=== PATIENT | male | born 1960 | race Caucasian/White ===

== ENCOUNTER → 2018-03-16 08:18 | Outpatient (CLI) | payer OTHER, SELFPAY ==
[2018-03-16 11:16] LABS: Blood Urea Nitrogen 18 mg/dL (7-18); Calcium 9.3 mg/dL (8.5-10.1); Carbon Dioxide 28 mmol/L (21.0-32.0); Chloride 102 mmol/L (98-107); Creatinine,Serum 0.74 mg/dL (0.70-1.30); Estimated Glomerular Filt Rate 108 ml/min (>60); GFR (African American) 131 ML/MIN (>60); Glucose 101 mg/dL (74-106); Sodium 140 mmol/L (136-145)
== END ==
PROVIDERS: Visit Provider Physician Assistant
DX: I10 Essential (primary) hypertension (principal); R06.09 Other forms of dyspnea; R60.9 Edema, unspecified
CPT/HCPCS: 36415; 80048

== ENCOUNTER → 2018-03-23 10:59 | Outpatient (CLI) | payer OTHER, SELFPAY ==
--- NOTE | 2018-03-23 11:03 | CT_ITS ---
CT chest wo con HISTORY: Shortness of air, swelling ITS.REASON: . ORDERING PHYSICIAN: Geovanny Long MD PATIENT AGE: 58 years COMPARISON: None Technique: Axial images obtained with sagittal and coronal reformats. All CT scans at the facility use one or more dose reduction, viz: automated exposure control, ma/kV adjustment per patient size (including targeted exams where dose is matched to indication, i.e. head), or iterative reconstruction technique. FINDINGS: There are scattered small mediastinal lymph nodes not significantly changed. Normal heart size. No coronary artery calcification evident. Minimal thickening of the pericardium anteriorly. The ascending aorta is upper normal at 4 cm.. No mediastinal or hilar mass or adenopathy. Minimal atelectatic changes are present in lung bases. No lobar consolidation or collapse. No central obstructing lesion. Mild degenerative changes thoracic spine. IMPRESSION: 1. No acute finding. 2. Mild atelectatic or fibrotic changes in the lung bases. No central obstructing lesion or suspicious nodule. 3. Ascending aorta upper limits of normal at 4 cm
== END ==
PROVIDERS: PCP Emergency Medicine; Visit Provider Internal Medicine Cardiovascular Disease
DX: R06.09 Other forms of dyspnea (principal); I10 Essential (primary) hypertension; I51.9 Heart disease, unspecified; K21.9 Gastro-esophageal reflux disease without esophagitis; M19.90 Unspecified osteoarthritis, unspecified site; R60.9 Edema, unspecified
CPT/HCPCS: 71250; 93225

== ENCOUNTER → 2018-03-27 16:06 | Outpatient (CLI) | payer OTHER, SELFPAY | PROVIDERS: PCP Emergency Medicine; Visit Provider Internal Medicine Cardiovascular Disease | DX: G47.33 Obstructive sleep apnea (adult) (pediatric) (principal); R06.09 Other forms of dyspnea; R06.83 Snoring; R53.83 Other fatigue; E66.9 Obesity, unspecified; I10 Essential (primary) hypertension; K21.9 Gastro-esophageal reflux disease without esophagitis; I51.9 Heart disease, unspecified | CPT/HCPCS: 95806 ==

== ENCOUNTER → 2018-06-25 15:55 | Outpatient (CLI) | payer OTHER, SELFPAY | PROVIDERS: Visit Provider Specialist | DX: G47.33 Obstructive sleep apnea (adult) (pediatric) (principal) | CPT/HCPCS: 94762 ==

== ENCOUNTER → 2018-08-09 14:05 | Outpatient (CLI) | payer OTHER, SELFPAY ==
--- NOTE | 2018-08-09 14:07 | MR_ITS ---
MR lumbar spine wo con, MR 3-d myelogram/MRCP Ordering Physician: Miguel Mathis MD Patient Age: 58 years: Male HISTORY: ITS.REASON: back pain with leg pain Bilateral leg pain. 5 months. No trauma. HISTORY of lumbar surgery 2003. Cramping left foot. TECHNIQUE: Sagittal STIR, T1, T2, axial T1 and T2. On 1.5T Siemens wide bore MRI. 3-D MR myelogram image set obtained & performed on MRI workstation. Additional sagittal thin section T2 weighted dataset obtained from this latter acquisition as well (---76 CPT) COMPARISON :CT lumbar spine 03/19/2011. FINDINGS Vertebral bodies appear intact with no compression fracture or lesion. Prominent disc space narrowing L5/S1 most notable posteriorly with mild reactive endplate changes about the narrowed degenerated disc. Diffuse disc bulge along with some mild posterior hypertrophic ridging. Bilateral facet hypertrophy. Features combine to yield a moderate/generous narrowing/encroachment upon the lateral recesses and neural foramen bilaterally. L4/5. Mild diffuse disc bulge slightly more evident towards the right. Prominent facet hypertrophy, arthropathy. Ligamentum flavum hypertrophy on the left. Features combine to yield moderate recess & foraminal encroachment on right more than left.. Note previous procedure/ surgery posterior to L4/5-suspect there may be a small microlaminectomy right. L3/4: Disc intact. Neural foramen patent. Minor facet arthropathy. L2/3 disc, intact.. L1/2 disc intact . T12/L1 disc intact T11/12. Moderate Spur,/focal hard disc to the right of midline which does indent thecal sac to the right, as well as mildly effaces cord to the right of midline.. Spurring here was was evident on previous CT studies 3-D MRI myelogram image set demonstrates axial fairly generous spinal canal. There is anterior indentation upon the thecal sac at the T 11/12 level due to the hard disc, spur to the right. Only scant indentation upon the left aspect of thecal sac due to the facet and ligament flavum hypertrophy on left at L4/5. IMPRESSION 1. L5/S1 Degenerative disc space narrowing most pronounced posteriorly at L5/S1. Mild disc bulge & posterior ridging along with facet hypertrophy yields moderate/generous foraminal & recess encroachment bilaterally. 2.... L4/5. Mild diffuse disc bulge along with prominent facet hypertrophy.-Features combine to yield moderate recess & foraminal encroachment, right more so than left 3. T11/12. Again note a focal spur & hard disc to the right of midline-which indents thecal sac and mildly effaces thoracic cord to the right
== END ==
PROVIDERS: PCP Emergency Medicine; Visit Provider Emergency Medicine
DX: M54.10 Radiculopathy, site unspecified (principal)
CPT/HCPCS: 72148; 76376

== ENCOUNTER → 2018-09-14 14:58 | Outpatient (POV) | payer OTHER, SELFPAY ==
[2018-09-14 15:00] VITALS: BP 155/116; PULSE 89; RESP 20; O2SAT 95; BMI 33.2
--- NOTE | 2018-09-14 15:20 | HMH.PMCON ---
Assessment and Plan (1) Facet hypertrophy of lumbosacral region Current visit: No Status: Chronic Category: Medical Code(s): M47.817 - Spondylosis without myelopathy or radiculopathy, lumbosacral region (2) Bulging lumbar disc Current visit: No Status: Chronic Category: Medical Code(s): M51.26 - Other intervertebral disc displacement, lumbar region (3) Lumbar disc disease with radiculopathy Current visit: No Status: Acute Category: Medical Code(s): M51.16 - Intervertebral disc disorders with radiculopathy, lumbar region - Assessment and plan all Dx Assessment and Plan for all problems:: We will seek approval for a lumbar epidural steroid injection under fluoroscopy at L4-L5. He is to continue with gabapentin and tramadol. HPI - Data of Consult Patient: new to practice Consult date: 09/14/18 Requesting Physician: Ten Miller MD Primary Care Provider: Miguel Mathis MD - Consult Narrative Reason for consult: Low back pain and leg pain History of present illness: Mr. Lawson is a 58 year old male who has increasing low back pain with radiation into both legs especially to his knees. He previously had a lumbar discectomy at L4-L5. His MRI does show mild diffuse disc bulge at L4-L5 with ligamentum flavum hypertrophy and previous discectomy at that level. He also has had a microlaminectomy at that level. He was doing well up until recently when he started to have some increasing back pain radiating to his legs and both knees. He rates his pain a 6-7 out of 10. He describes his pain as aching, constant. He has not had any injections. He is currently on gabapentin and tramadol which does help some. CC: Ten Miller MD [facility] History I have reviewed the patient's past medical history: Yes Medical History: Reports:: Hypertension, Osteoporosis Denies:: Cancer, Diabetes Mellitus Type 1, Diabetes Mellitus Type 2, MRSA *Have you ever received a pneumonia vaccine?: No *Have you received a flu vaccine this season?: Yes Other Medical History: Reports: Osteoporosis Other Surgeries: Yes: Cholecystectomy, Other (back surgery x 2) Amputation: No Fractures: No - *Social History Smoking Status: Never smoker Tobacco Type: cigarettes Alcohol Intake: never Alcohol Intake Frequency:: a few times a week Substance Use Type: denies use *Occupational Status:: employed Housing: house *Travel in the last 8 weeks: None - Psychiatric History Expresses thoughts of harming self/others: None Suicide Plan Description: No Plan Family Hx:: Cancer Review of Systems - Review of Systems Review of systems:: pertinent systems reviewed and negative unless documented below - *Musculoskeletal Reports abnormal walking, Reports joint pain, Reports back pain, Reports radiating pain into limb, Reports stiffness Meds Home Medications Medication Instructions Recorded Confirmed Type Multivitamin/Iron/Folic Acid 1 each PO DAILY 03/07/18 08/03/18 History [Multivitamin with Iron Tablet] pantoprazole DR 40 mg granules 40 mg PO DAILY #90 each 03/09/18 08/03/18 Rx delayed-release for susp in packet losartan 50 mg-hydrochlorothiazide 1 tab PO DAILY #90 tab 09/14/18 Rx 12.5 mg tablet Allergies Allergy/AdvReac Type Severity Reaction Status Date / Time From ALEVE Allergy Mild Uncoded 08/03/18 14:53 From TYLENOL Allergy Unknown Uncoded 08/03/18 14:53 Objective Vital signs: Pulse Resp BP Pulse Ox 89 20 155/116 H 95 09/14/18 15:00 09/14/18 15:00 09/14/18 15:00 09/14/18 15:00 - Routine Back/Spine/Pelvis Exam Back/Spine: Present: vertebral tenderness, abnormal straight leg raise Opioid Risk Tool - CAGE-AID Questionaire Do you feel a need to increase medication use?: No Are you annoyed by criticism?: No Do you feel guilty for using substances?: No Do you use substances to calm or relieve a hangover?: No - Opioid Risk Tool-Male Family hx alcohol abuse: N Family hx illegal drugs: N
--- NOTE | 2018-09-14 15:24 | P.CONS_ITS ---
Assessment and Plan (1) Facet hypertrophy of lumbosacral region Current visit: No Status: Chronic Category: Medical Code(s): M47.817 - Spondylosis without myelopathy or radiculopathy, lumbosacral region (2) Bulging lumbar disc Current visit: No Status: Chronic Category: Medical Code(s): M51.26 - Other intervertebral disc displacement, lumbar region (3) Lumbar disc disease with radiculopathy Current visit: No Status: Acute Category: Medical Code(s): M51.16 - Intervertebral disc disorders with radiculopathy, lumbar region - Assessment and plan all Dx Assessment and Plan for all problems:: We will seek approval for a lumbar epidural steroid injection under fluoroscopy at L4-L5. He is to continue with gabapentin and tramadol. HPI - Data of Consult Patient: new to practice Consult date: 09/14/18 Requesting Physician: Ten Miller MD Primary Care Provider: Miguel Mathis MD - Consult Narrative Reason for consult: Low back pain and leg pain History of present illness: Mr. Lawson is a 58 year old male who has increasing low back pain with radiation into both legs especially to his knees. He previously had a lumbar discectomy at L4-L5. His MRI does show mild diffuse disc bulge at L4-L5 with ligamentum flavum hypertrophy and previous discectomy at that level. He also has had a microlaminectomy at that level. He was doing well up until recently when he started to have some increasing back pain radiating to his legs and both knees. He rates his pain a 6-7 out of 10. He describes his pain as aching, constant. He has not had any injections. He is currently on gabapentin and tramadol which does help some. CC: Ten Miller MD [facility] History I have reviewed the patient's past medical history: Yes Medical History: Reports:: Hypertension, Osteoporosis Denies:: Cancer, Diabetes Mellitus Type 1, Diabetes Mellitus Type 2, MRSA *Have you ever received a pneumonia vaccine?: No *Have you received a flu vaccine this season?: Yes Other Medical History: Reports: Osteoporosis Other Surgeries: Yes: Cholecystectomy, Other (back surgery x 2) Amputation: No Fractures: No - *Social History Smoking Status: Never smoker Tobacco Type: cigarettes Alcohol Intake: never Alcohol Intake Frequency:: a few times a week Substance Use Type: denies use *Occupational Status:: employed Housing: house *Travel in the last 8 weeks: None - Psychiatric History Expresses thoughts of harming self/others: None Suicide Plan Description: No Plan Family Hx:: Cancer Review of Systems - Review of Systems Review of systems:: pertinent systems reviewed and negative unless documented below - *Musculoskeletal Reports abnormal walking, Reports joint pain, Reports back pain, Reports radiating pain into limb, Reports stiffness Meds Home Medications Medication Instructions Recorded Confirmed Type Multivitamin/Iron/Folic Acid 1 each PO DAILY 03/07/18 08/03/18 History [Multivitamin with Iron Tablet] pantoprazole DR 40 mg granules 40 mg PO DAILY #90 each 03/09/18 08/03/18 Rx delayed-release for susp in packet losartan 50 mg-hydrochlorothiazide 1 tab PO DAILY #90 tab 09/14/18 Rx 12.5 mg tablet Allergies Allergy/AdvReac Type Severity Reaction Status Date / Time From ALEVE Allergy Mild Uncoded 08/03/18 14:53 From TYLENOL Allergy Unknown Uncoded 08/03/18 14:53 Obje
== END ==
PROVIDERS: PCP Emergency Medicine; Visit Provider Anesthesiology
DX: M47.817 Spondylosis without myelopathy or radiculopathy, lumbosacral region (principal); M51.16 Intervertebral disc disorders with radiculopathy, lumbar region; M51.26 Other intervertebral disc displacement, lumbar region; M81.0 Age-related osteoporosis without current pathological fracture
CPT/HCPCS: 99202

== ENCOUNTER 2018-10-26 13:47 | Day surgery (SDC) | payer OTHER, SELFPAY ==
[2018-10-26 13:56] VITALS: BP 134/80; PULSE 93; RESP 18; O2SAT 96; BMI 33.5
[2018-10-26 14:19] VITALS: BP 146/90; PULSE 99; RESP 18; O2SAT 95
--- NOTE | 2018-10-26 14:28 | HMH.PMPROC ---
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 He had a previous discectomy at L4-L5. He also had a microlaminectomy at that level. We will do a lumbar epidural steroid injection at L5-S1 today to see if this helps with his pain symptoms. Procedure Details:: Lumbar epidural steroid injection under fluoroscopy Informed consent was obtained and the risk and benefits of the procedure was explained to the patient. The patient was taken to the procedure room. The patient was placed prone on the procedure table. The patient was prepped and draped in sterile fashion. C-arm fluoroscopy was used to view the lumbar spine. Skin and subcutaneous tissues were anesthetized using lidocaine. I placed an 18-gauge epidural needle and advanced into the L5-S1 interspace using fluoroscopic guidance and [id number] to air. After confirmation of needle placement in the epidural space with dye I injected 2 mL of lidocaine 1.5% with Depo-Medrol 80 mg. Patient tolerated the procedure well with no complications. Plan and Disposition:: We will follow-up with him in 2 weeks. Will reevaluate symptoms at that time.
[2018-10-26 14:40] VITALS: BP 117/72; PULSE 86; RESP 18; O2SAT 95
== END 2018-10-26 14:40 | disposition home health service (06) ==
LOC: SC.PAINP 13:47
PROVIDERS: PCP Emergency Medicine; Visit Provider Anesthesiology
DX: M51.16 Intervertebral disc disorders with radiculopathy, lumbar region (principal); Z98.890 Other specified postprocedural states
CPT/HCPCS: 62323; J1040; Q9966

== ENCOUNTER → 2019-01-17 09:15 | Outpatient (CLI) | payer OTHER, SELFPAY ==
--- NOTE | 2019-01-17 09:16 | NM_ITS ---
PROCEDURE: NM BONE SCAN WHOLE BODY CLINICAL INDICATION: swelling in LLE Lower extremity swelling COMPARISON: CHESTWO CT chest wo con from 03/23/2018 SPLUMBWO MR lumbar spine wo con from 08/09/2018 TECHNIQUE: Dose: 26.5 mCi technetium MDP IV FINDINGS: Anterior and posterior images are obtained of the bony skeleton. Increased activity is present within both knees and feet. There is slight increased activity involving the right 6th rib anteriorly and right 10th rib posteriorly. Review of old chest CT shows an old fractures at these regions . There is slight increased activity within the lower thoracic spine consistent with mild degenerative changes. Otherwise negative. IMPRESSION: Essentially negative whole body bone scan aside from degenerative activity within the lower extremities and thoracic spine as well as an old right rib fractures Dictated by: Renny Loya MD 01/18/2019 10:25 Electronically signed by Renny Loya MD in [place] 01/18/2019 10:25
--- NOTE | 2019-01-17 10:54 | HMH.ITSHM ---
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 [] pantoprazole bisoprolol losartan
== END ==
PROVIDERS: PCP Emergency Medicine; Visit Provider Internal Medicine
DX: R60.0 Localized edema (principal); R06.09 Other forms of dyspnea; E66.9 Obesity, unspecified; I10 Essential (primary) hypertension; I51.89 Other ill-defined heart diseases; G47.33 Obstructive sleep apnea (adult) (pediatric); Z99.89 Dependence on other enabling machines and devices
CPT/HCPCS: 78306; A9503

== ENCOUNTER → 2019-01-25 08:28 | Outpatient (CLI) | payer OTHER, SELFPAY ==
--- NOTE | 2019-01-25 08:30 | MR_ITS ---
PROCEDURE: MR ABDOMEN WO/W CON CLINICAL INDICATION: to rule out retroperitoneal fibrosis Lower extremity swelling, retroperitoneal fibrosis, the COMPARISON: CHESTWO CT chest wo con from 03/23/2018 TECHNIQUE: Routine multiplanar multi echo sequences are performed without and with gadolinium enhancement. FINDINGS: The liver, spleen, adrenal glands, and kidneys have an unremarkable appearance. No evidence of aortic aneurysm. No retroperitoneal mass evident. No evidence of retroperitoneal fibrosis. The inferior vena cava has an unremarkable appearance. No acute bony anomalies. There is a incidental note made of a 12 mm cyst in the lower pole of the right kidney IMPRESSION: Negative MRI of the abdomen without and with gadolinium enhancement No evidence of retroperitoneal fibrosis. Dictated by: Renny Loya MD 01/28/2019 06:22 Electronically signed by Renny Loya MD in [place] 01/28/2019 06:22
--- NOTE | 2019-01-25 08:30 | MR_ITS ---
PROCEDURE: MR PELVIS WO/W CON CLINICAL INDICATION: to rule out retroperitoneal fibrosis Lower extremity swelling with pain COMPARISON: No exams were available for comparison TECHNIQUE: Routine multiplanar multi echo sequences are performed without and with gadolinium enhancement. FINDINGS: No mass, adenopathy, or abnormal enhancement. No adenopathy. No abnormal fluid collections. No acute bony findings. Mild prominence of the prostate at 4.9 x 3.9 cm. No bony anomalies apparent. IMPRESSION: Unremarkable MRI of the pelvis without and with contrast. Dictated by: Renny Loya MD 01/28/2019 06:02 Electronically signed by Renny Loya MD in [place] 01/28/2019 06:02
[2019-01-25 08:57] LABS: Blood Urea Nitrogen 21 mg/dL (7-18); Estimated Glomerular Filt Rate 86 ml/min (>60); GFR (African American) 105 ML/MIN (>60)
== END ==
PROVIDERS: PCP Emergency Medicine; Visit Provider Internal Medicine
DX: I51.89 Other ill-defined heart diseases (principal); I10 Essential (primary) hypertension; E66.9 Obesity, unspecified; R60.9 Edema, unspecified; R06.09 Other forms of dyspnea; G47.33 Obstructive sleep apnea (adult) (pediatric); Z99.89 Dependence on other enabling machines and devices
CPT/HCPCS: 36415; 72197; 74183; 82565; 84520; A9576

== ENCOUNTER → 2019-02-19 10:18 | Outpatient (CLI) | payer OTHER, SELFPAY ==
--- NOTE | 2019-02-19 10:20 | CA_ITS ---
APPROVED REPORT EXAM: Comprehensive 2D, Doppler, and color-flow Echocardiogram Marble Cleaner: Renetta Cooper RVT Ht: 6 ft 0 in Wt: 261lbs BSA: 2.39 BP: 123/87 mmHg Indications: DD, Edema, Hypertension, Shortness of Breath, Obesity, Hypertension/HDD 2D Dimensions IVSd 1.10 cm M: 0.6-1.2 LVEF (Visual) 68.00 % PWd 1.20 cm M: 0.6 - 1.2 LVDd 4.50 cm M: 4.2 - 5.9 LVDs 2.80 cm M: 2.5 - 4.0 LVOT 2.50 cm (M/F) 1.5-2.5 M-Mode Dimensions LA Diam 4.10 cm (1.9-4.0) LVDd 6.70 cm (3.5-5.7) Ao Diam 2.80 cm (2.0-3.7) LVDs 5.30 cm (3.5-5.7) AV Cusp 2.30 cm (1.5-2.6) IVSd 1.10 cm (0.6-1.1) PWd 0.70 cm (0.6-1.1) EF (Teich) 41.60% FS 20.90% EDV (Teich) 231.00 mL ESV (Teich) 135.00 mL LV Diastology E/A Ratio 0.7 MED E' 5.56 (< 7 cm/sec) E'/MED E' Ratio 7.60 (>14) LAT E' 7.02 (<10 cm/sec) E/LAT E' Ratio 6.00 (>14) Aortic Valve AoV Peak Javier. 98.20 (50-130 cm/s) AI PHT 942.00 ms AO Peak GR. 4.00 mmHg Mitral Valve MV E Max Javier. 42.00 (40-130 cm/s) MV A Velocity 62.40 (40-130 cm/s) E/A Ratio 0.70 Pulmonary Valve PA Accel Time 120.00 (>120 msec) Left Ventricle Left atrium is mildly enlarged, left ventricle is normal size, mild concentric left ventricular hypertrophy, visually estimated ejection fraction 55% with no regional wall motion abnormality, endocardial surfaces are poorly visualized. Grade 1 diastolic dysfunction seen without tissue Doppler evidence of raise left atrial pressure. Right Ventricle Right atrium and right ventricle mildly enlarged with normal contractility. Aortic Valve Aortic valve is minimally thickened and calcified, there is no aortic stenosis, there is mild aortic insufficiency. Mitral Valve Mitral valve leaflets are minimally thickened, there is mild mitral regurgitation. Tricuspid Valve Tricuspid valve is grossly normal, there is mild tricuspid regurgitation, tricuspid regurgitation jet velocity is inadequate for cannulation of the right ventricular systolic pressure. Pulmonic Valve Pulmonic valve is poorly visualized. Great Vessels Aortic root is normal size. Pericardium No significant pericardial effusion noted. Conclusion 1. Mildly enlarged left atrium, normal left ventricular size, mild concentric left ventricular hypertrophy, visually estimated ejection fraction 55% with no regional wall motion abnormality, grade 1 diastolic dysfunction seen without tissue Doppler evidence of raise left atrial pressure. 2. Mildly enlarged right ventricle with normal contractility. 3. Thickened and calcified aortic valve without aortic stenosis, there is mild aortic insufficiency. 4. Mild mitral and tricuspid regurgitation. 5. No significant pericardial effusion noted. Electronically signed by : Geovanny Long, 02/20/2019 06:29:25
== END ==
PROVIDERS: PCP Emergency Medicine; Visit Provider Internal Medicine
DX: I50.30 Unspecified diastolic (congestive) heart failure (principal); R06.09 Other forms of dyspnea; E66.9 Obesity, unspecified; G47.33 Obstructive sleep apnea (adult) (pediatric); I10 Essential (primary) hypertension; Z99.89 Dependence on other enabling machines and devices
CPT/HCPCS: 93306

== ENCOUNTER → 2019-03-20 11:06 | Outpatient (CLI) | payer OTHER, SELFPAY ==
[2019-03-21 08:13] LABS: Vitamin D 25 Hydroxy 42.5 ng/mL (30.0-100.0)
[2019-03-21 13:21] LABS: Antinuclear Antibodies, IFA Negative (.)
[2019-03-22 21:12] LABS: C1 Esterase Inhibitor 29 mg/dL (21-39)
[2019-03-26 10:13] LABS: Beef (Bos spp) IgE <0.10 kU/L (<0.35); Lamb/Mutton (Ovis spp) IgE <0.10 kU/L (<0.35)
[2019-03-26 14:58] LABS: C1 Est.Inhib.Funct. >92 (.)
== END ==
PROVIDERS: Visit Provider Allergy & Immunology
DX: T78.3XXA Angioneurotic edema, initial encounter (principal); L29.9 Pruritus, unspecified
CPT/HCPCS: 36415; 82652; 83520; 86003; 86008; 86038; 86161; 86352

== ENCOUNTER → 2019-04-09 13:26 | Outpatient (POV) | payer OTHER, SELFPAY | PROVIDERS: Visit Provider Dermatology | DX: Z00.00 Encounter for general adult medical examination without abnormal findings (principal) ==

== ENCOUNTER → 2019-06-05 13:56 | Outpatient (POV) | payer OTHER, SELFPAY | DX: Z00.00 Encounter for general adult medical examination without abnormal findings (principal) ==

== ENCOUNTER → 2022-09-26 14:50 | Outpatient (CLI) | payer OTHER, SELFPAY ==
[2022-09-26 18:25] LABS: Alanine Aminotransferase 20 U/L (12-78); Albumin Level 4.1 g/dl (3.5-5.0); Albumin/Globulin Ratio 1.6 (1.1-1.8); Alkaline Phosphatase 95 U/L (38-126); Anion Gap 22.4 mEq/L (5-15); Aspartate Amino Transferase 31 U/L (17-59); Bilirubin,Total 0.7 mg/dl (0.2-1.3); Blood Urea Nitrogen 30 mg/dl (9-20); Calcium 8.8 mg/dl (8.4-10.2); Carbon Dioxide 22 mmol/L (22.0-30.0); Chloride 100 mmol/L (98-107); Chol/HDL Ratio 4.4 (1-3.5); Cholesterol 173 mg/dl (140-200); Estimated Glomerular Filt Rate 98 ml/min (>60); Free T4 (Free Thyroxine) 1.52 ng/dl (0.78-2.19); GFR (African American) 118 ML/MIN (>60); Globulin 2.6 g/dL (1.3-3.2); Glucose 91 mg/dl (74-100); HDL Cholesterol 39 mg/dl (40-60); Potassium 4.4 mmoL/L (3.5-5.1); Sodium 140 mmol/L (136-145); Total Protein,Serum 6.7 g/dl (6.3-8.2); Triglycerides 189 mg/dl (30-150); Uric Acid 4.6 mg/dl (3.5-8.5); VLDL Cholesterol 38 mg/dL (0-40)
[2022-09-26 18:27] LABS: 25-OH Vitamin D, Total 49.3 ng/mL (30-100)
[2022-09-26 18:36] LABS: Direct LDL Cholesterol 115.35 mg/dL (100-129)
[2022-09-26 18:42] LABS: Basophils % 0.4 % (0.1-2.0); Eosinophils # 0.2 K/mm3 (0.0-0.4); Hemoglobin 14.8 g/dL (14.1-18.0); Lymphocytes # 1.8 K/mm3 (0.7-4.5); Lymphocytes % 19.7 % (10-50); Mean Corpuscular HGB Conc 32.8 g/dL (31.8-35.4); Mean Corpuscular Hemoglobin 29.5 pg (27.0-31.2); Mean Corpuscular Volume 89.8 fl (80-94); Mean Platelet Volume 8.6 fl (7.4-10.4); Monocytes # 0.5 K/mm3 (0.1-1.0); Monocytes % 4.9 % (1.7-9.3); Neutrophils # 6.8 K/mm3 (1.8-7.8); Neutrophils % 72.9 % (37.0-80.0); Platelet Count 395 K/mm3 (142-424); Red Blood Count 5.01 M/mm3 (4.60-6.20); Red Cell Distribution Width 13.4 % (11.5-17.5); White Blood Count 9.3 K/mm3 (4.8-10.8)
[2022-09-26 18:56] LABS: Thyroid Stimulating Hormone 1.05 uIU/mL (0.465-4.68)
[2022-09-26 19:30] LABS: C-Reactive Protein 42.7 mg/L (0-4)
[2022-09-26 19:34] LABS: Erythrocyte Sedimentation Rate 22 mm/hr (0-20)
== END ==
LOC: LAB.DROPOF 09-27 06:41
PROVIDERS: PCP Emergency Medicine; Visit Provider Emergency Medicine
DX: E66.9 Obesity, unspecified (principal); M25.572 Pain in left ankle and joints of left foot; E55.9 Vitamin D deficiency, unspecified; Z68.32 Body mass index [BMI] 32.0-32.9, adult; R94.6 Abnormal results of thyroid function studies; Z79.899 Other long term (current) drug therapy
CPT/HCPCS: 80053; 80061; 82306; 84439; 84443; 84550; 85025; 85651; 86140

== ENCOUNTER 2023-10-25 08:39 | Outpatient (CLI) | payer OTHER, SELFPAY ==
[2023-10-25 09:06] LABS: Basophils % 0.5 % (0.1-2.0); Eosinophils # 0.2 K/mm3 (0.0-0.4); Eosinophils % 2.4 % (0.1-12.0); Hematocrit 45.9 % (42.0-52.0); Hemoglobin 14.5 g/dL (14.1-18.0); Lymphocytes # 1.4 K/mm3 (0.7-4.5); Lymphocytes % 18.7 % (10-50); Mean Corpuscular HGB Conc 31.7 g/dL (31.8-35.4); Mean Corpuscular Hemoglobin 29.2 pg (27.0-31.2); Mean Corpuscular Volume 92.2 fl (80-94); Monocytes # 0.4 K/mm3 (0.1-1.0); Monocytes % 5.1 % (1.7-9.3); Neutrophils # 5.6 K/mm3 (1.8-7.8); Neutrophils % 73.3 % (37.0-80.0); Platelet Count 373 K/mm3 (142-424); Red Blood Count 4.97 M/mm3 (4.60-6.20); Red Cell Distribution Width 13.8 % (11.5-17.5); White Blood Count 7.6 K/mm3 (4.8-10.8)
[2023-10-25 09:27] LABS: Chloride 106 mmol/L (98-107); Sodium 138 mmol/L (136-145)
[2023-10-25 09:28] LABS: Potassium 4.8 mmoL/L (3.5-5.1)
[2023-10-25 09:30] LABS: Alanine Aminotransferase 19 U/L (12-78); Albumin Level 3.9 g/dl (3.5-5.0); Albumin/Globulin Ratio 1.4 (1.1-1.8); Alkaline Phosphatase 92 U/L (38-126); Anion Gap 11.8 mEq/L (5-15); Aspartate Amino Transferase 26 U/L (17-59); Bilirubin,Total 0.9 mg/dl (0.2-1.3); Blood Urea Nitrogen 20 mg/dl (9-20); Carbon Dioxide 25 mmol/L (22.0-30.0); Estimated Glomerular Filt Rate 97 ml/min (>60); GFR (African American) 118 ML/MIN (>60); Globulin 2.7 g/dL (1.3-3.2); Total Protein,Serum 6.6 g/dl (6.3-8.2)
[2023-10-25 09:31] LABS: Calcium 9.2 mg/dl (8.4-10.2); Glucose 110 mg/dl (74-100)
[2023-10-25 11:15] LABS: Erythrocyte Sedimentation Rate 45 mm/hr (0-20)
[2023-10-26 11:56] LABS: HBsAg Screen Negative (Negative); HCV Ab Non Reactive (Non Reactive); Hep A Ab, IGM Negative (Negative); Hep B Core Ab, IgM Negative (Negative)
[2023-10-26 14:27] LABS: RA Latex Turbid. <10.0 IU/mL (<14.0)
== END 2023-10-25 23:59 | disposition home or self-care (01) ==
LOC: LAB 08:40
PROVIDERS: PCP Family Medicine; Visit Provider Internal Medicine
DX: R76.8 Other specified abnormal immunological findings in serum; M25.50 Pain in unspecified joint; Z79.1 Long term (current) use of non-steroidal anti-inflammatories (NSAID); M11.20 Other chondrocalcinosis, unspecified site; W57.XXXA Bitten or stung by nonvenomous insect and other nonvenomous arthropods, initial encounter; M25.40 Effusion, unspecified joint
CPT/HCPCS: 36415; 80053; 80074; 85025; 85651; 86431

== ENCOUNTER 2023-10-31 14:24 | Outpatient (CLI) | payer OTHER, SELFPAY ==
[2023-10-31 15:11] LABS: Basophils % 0.5 % (0.1-2.0); Eosinophils # 0.2 K/mm3 (0.0-0.4); Eosinophils % 2.4 % (0.1-12.0); Hematocrit 43.7 % (42.0-52.0); Hemoglobin 14.2 g/dL (14.1-18.0); Lymphocytes # 1.5 K/mm3 (0.7-4.5); Mean Corpuscular HGB Conc 32.6 g/dL (31.8-35.4); Mean Corpuscular Hemoglobin 29.6 pg (27.0-31.2); Mean Platelet Volume 8.2 fl (7.4-10.4); Monocytes # 0.3 K/mm3 (0.1-1.0); Monocytes % 4.8 % (1.7-9.3); Neutrophils # 5.1 K/mm3 (1.8-7.8); Neutrophils % 71.3 % (37.0-80.0); Platelet Count 355 K/mm3 (142-424); White Blood Count 7.1 K/mm3 (4.8-10.8)
[2023-11-02 13:02] LABS: Lyme Ab CIA Negative (Negative)
[2023-11-02 17:30] LABS: % CD8-/CD57+ Lymphs 12.9 % (2.0-17.0); Abs.CD8-CD57+ Lymphs 194 /uL (60-360); Baso (Absolute) 0.1 x10E3/uL (0.0-0.2); Basos 1 % (Not Estab.); Eos 2 % (Not Estab.); Eos (Absolute) 0.1 x10E3/uL (0.0-0.4); Hematocrit 43.5 % (37.5-51.0); Immature Granulocytes 0 % (Not Estab.); Lymphs 21 % (Not Estab.); Lymphs (Absolute) 1.5 x10E3/uL (0.7-3.1); MCH 28.8 pg (26.6-33.0); MCHC 32.2 g/dL (31.5-35.7); MCV 90 fL (79-97); Monocytes 7 % (Not Estab.); Neutrophils 69 % (Not Estab.); Neutrophils (Absolute) 5.1 x10E3/uL (1.4-7.0); Platelets 329 x10E3/uL (150-450); RBC 4.86 x10E6/uL (4.14-5.80); RDW 12.8 % (11.6-15.4); WBC 7.3 x10E3/uL (3.4-10.8)
[2023-11-18 11:26] LABS: HGE IgG Titer NEGATIVE; HGE IgM Titer NEGATIVE
[2023-11-18 11:28] LABS: Miscellaneous Test SCANNED IMAGE
== END 2023-10-31 23:59 | disposition home or self-care (01) ==
LOC: LAB 14:26
PROVIDERS: PCP Nurse Practitioner Family; Visit Provider Nurse Practitioner Family
DX: M25.50 Pain in unspecified joint; W57.XXXA Bitten or stung by nonvenomous insect and other nonvenomous arthropods, initial encounter
CPT/HCPCS: 36415; 85025; 86357; 86618; 86666

== ENCOUNTER 2024-02-07 15:30 | Outpatient (CLI) | payer MEDICARE, SELFPAY ==
[2024-02-07 16:32] LABS: Microscopic, Urine URINE MICROSCOPIC (MICROSCOPIC)
[2024-02-07 17:33] LABS: Appearance,Urine CLEAR (Clear); Bilirubin,Urine Negative (Negative); Blood, Urine Negative (Negative); Color,Urine YELLOW (Yellow); Glucose,Urine (UA) Negative (Negative); Ketones,Urine Negative (Negative); Leukocyte Esterase,Urine Negative (Negative); Nitrate,Urine Negative (Negative); PH,Urine 6.5 (5.0-8.5); Protein,Urine Negative (Negative)
[2024-02-07 18:16] LABS: RBC,Urine Occasional #/hpf (0-3); Squamous Epithelial Cell,Urine Occasional #/hpf (0-5)
== END 2024-02-07 23:59 | disposition home or self-care (01) ==
LOC: LAB.DROPOF 02-08 13:49
PROVIDERS: PCP Nurse Practitioner Family; Visit Provider Nurse Practitioner Family
DX: R30.0 Dysuria (principal); N41.9 Inflammatory disease of prostate, unspecified
CPT/HCPCS: 81001; 87086

== ENCOUNTER 2024-02-21 09:00 | Outpatient (CLI) | payer MEDICARE, SELFPAY ==
[2024-02-21 14:11] LABS: Alanine Aminotransferase 22 U/L (12-78); Albumin Level 4.3 g/dl (3.5-5.0); Albumin/Globulin Ratio 1.7 (1.1-1.8); Alkaline Phosphatase 60 U/L (38-126); Aspartate Amino Transferase 37 U/L (17-59); Bilirubin,Total 1.1 mg/dl (0.2-1.3); Blood Urea Nitrogen 21 mg/dl (9-20); Calcium 9.2 mg/dl (8.4-10.2); Carbon Dioxide 23 mmol/L (22.0-30.0); Chloride 110 mmol/L (98-107); Chol/HDL Ratio 3.9 (1-3.5); Cholesterol 179 mg/dl (140-200); Estimated Glomerular Filt Rate 113 ml/min (>60); GFR (African American) 137 ML/MIN (>60); Globulin 2.6 g/dL (1.3-3.2); Glucose 93 mg/dl (74-100); HDL Cholesterol 46 mg/dl (40-60); Sodium 136 mmol/L (136-145); Total Protein,Serum 6.9 g/dl (6.3-8.2); Triglycerides 73 mg/dl (30-150); VLDL Cholesterol 15 mg/dL (0-40)
[2024-02-21 14:22] LABS: C-Reactive Protein 7.1 mg/L (0-4); Direct LDL Cholesterol 115.11 mg/dL (100-129)
[2024-02-21 14:52] LABS: Hemoglobin A1C 5.5 % (4.0-6.0)
== END 2024-02-21 23:59 | disposition home or self-care (01) ==
LOC: LAB.DROPOF 02-22 10:15
PROVIDERS: PCP Nurse Practitioner Family; Visit Provider Nurse Practitioner Family
DX: Z12.5 Encounter for screening for malignant neoplasm of prostate (principal); M25.50 Pain in unspecified joint; E78.5 Hyperlipidemia, unspecified; I10 Essential (primary) hypertension; Z13.1 Encounter for screening for diabetes mellitus
CPT/HCPCS: 80053; 80061; 83036; 86140; G0103

== ENCOUNTER 2024-09-09 09:30 | Outpatient (CLI) | payer MEDICARE, SELFPAY ==
--- NOTE | 2024-09-09 09:33 | XR_ITS ---
FINAL REPORT CLINICAL HISTORY: cervicalgia c/o pain right side radiates to shoulder FINDINGS: AP, lateral and odontoid views of the cervical spine were obtained. There is no prior exam for comparison. There is no acute fracture or malalignment. There is mild degenerative disc disease most pronounced at C3-4 and C4-5. Vertebral body height is preserved. The precervical soft tissues are normal. IMPRESSION: No acute osseous abnormality of the cervical spine. Reviewed, Interpreted and Dictated by Bethany Norman MD Transcribed by Valentine Iglesias Authenticated and [facility]
== END 2024-09-09 23:59 | disposition home or self-care (01) ==
LOC: RAD 09:31
PROVIDERS: PCP Nurse Practitioner Family; Visit Provider Nurse Practitioner Family
DX: M43.6 Torticollis (principal); M54.2 Cervicalgia
CPT/HCPCS: 72040

== ENCOUNTER 2024-10-15 10:30 | Outpatient (CLI) | payer MEDICARE, SELFPAY ==
[2024-10-15 14:16] LABS: Basophils # 0.1 K/mm3 (0-0.2); Basophils % 0.7 % (0.1-2.0); Eosinophils # 0.2 Kmm3 (0.0-0.4); Hematocrit 46.9 % (42.0-52.0); Hemoglobin 15.5 g/dL (14.1-18.0); Immature Granulocytes # 0.02 10^3uL; Immature Granulocytes % 0.3 %; Lymphocytes # 1.5 K/mm3 (0.7-4.5); Mean Corpuscular Hemoglobin 29.9 pg (27.0-31.2); Mean Corpuscular Volume 90.4 fl (80-94); Mean Platelet Volume 10.4 fl (7.4-10.4); Monocytes # 0.7 K/mm3 (0.1-1.0); Monocytes % 9.5 % (1.7-9.3); Neutrophils # 4.5 K/mm3 (1.8-7.8); Neutrophils % 64.5 % (37.0-80.0); Nucleated Red Blood Cells # 0 10^3/uL; Nucleated Red Blood Cells % 0 %; Platelet Count 324 K/mm3 (142-424); Red Blood Count 5.19 M/mm3 (4.60-6.20); Red Cell Distribution Width 12.8 % (11.5-17.5); Red Cell Distribution Width-SD 42.2 fL
[2024-10-15 14:40] LABS: Alanine Aminotransferase 23 U/L (12-78); Albumin Level 4.3 g/dl (3.5-5.0); Albumin/Globulin Ratio 1.7 (1.1-1.8); Alkaline Phosphatase 84 U/L (38-126); Anion Gap 10.8 mEq/L (5-15); Aspartate Amino Transferase 26 U/L (17-59); Bilirubin,Total 0.9 mg/dl (0.2-1.3); Blood Urea Nitrogen 27 mg/dl (9-20); Calcium 9.5 mg/dl (8.4-10.2); Carbon Dioxide 24 mmol/L (22.0-30.0); Chloride 106 mmol/L (98-107); Chol/HDL Ratio 5.8 (1-3.5); Cholesterol 193 mg/dl (140-200); Estimated Glomerular Filt Rate 85 ml/min (>60); GFR (African American) 102 ML/MIN (>60); Globulin 2.6 g/dL (1.3-3.2); Glucose 67 mg/dl (74-100); HDL Cholesterol 33 mg/dl (40-60); Magnesium 2.2 mg/dl (1.6-2.3); Potassium 4.8 mmoL/L (3.5-5.1); Sodium 136 mmol/L (136-145); Total Protein,Serum 6.9 g/dl (6.3-8.2); Triglycerides 172 mg/dl (30-150); Uric Acid 4.5 mg/dl (3.5-8.5); VLDL Cholesterol 34 mg/dL (0-40)
[2024-10-15 14:51] LABS: Direct LDL Cholesterol 124.09 mg/dL (100-129)
[2024-10-15 15:10] LABS: Thyroid Stimulating Hormone 1.92 uIU/mL (0.465-4.68)
[2024-10-15 15:14] LABS: Erythrocyte Sedimentation Rate 9 mm/hr (0-20)
[2024-10-15 15:30] LABS: Vitamin B12 757 pg/mL (239-931)
--- OUTSIDE RECORDS SUMMARY | 2024-10-16 11:21 | XMS_ITS | Clinical Summary ---
Author Organization Healthcare Address [address] [place] [address] Care Team Providers Care Art Gilder Name Role Phone Miguel Mathis MD Primary Care Provider [phone] Family History Medical History Relation Name Comments Cardiac disorder Other 1 Prostate cancer Other 2 Skin cancer Other 3 Relation Name Status Comments Other 1 Other 2 Other 3 Social History Tobacco Use Types Packs/Day Years Used Date Smoking Tobacco: Former Comments:Former light tobacc o smoker Alcohol Use Standard Drinks/Week Comments Yes 0 (1 standard drink = 0.6 oz pure alcohol) Alcoholic Drinks/day: Minimum alcohol consumption Sex and Gender Information Value Date Recorded Sex Assigned at Not on file Legal Sex Male 7:13 PM EDT Gender Identity Not on file Sexual Orientation Not on file Last Filed Vital Signs Vital Sign Reading Time Taken Comments Blood Pressure - - Pulse - - Temperature - - Respiratory Rate - - Oxygen Saturation - - Inhaled Oxygen Concentration - - Weight 114 kg (250 lb 6 oz) 02/11/2016 10:31 AM EDT Height 182.9 cm (6') 02/11/2016 10:31 AM EDT Body Mass Index 33.96 02/11/2016 10:31 AM EDT Plan of Treatment Not on file Care Teams Art Gilder Relationship Specialty Start Date End Date Miguel Mathis MD [address] [facility] [place] [address] PCP - General 09/18/20
--- OUTSIDE RECORDS SUMMARY | 2024-10-16 11:21 | XMS_ITS | Referral Summary ---
Author Organization [facility] [facility] [employer] Address [address] [place] [address] Care Team Providers Care Line Construction Supervisor Name Role Phone Unavailable Primary Care Provider Unavailabl e Social History Tobacco Use Types Packs/Day Years Used Date Smoking Tobacco: Never Assessed Sex and Gender Information Value Date Recorded Sex Assigned at Not on file Legal Sex Male 7:14 PM CDT Gender Identity Not on file Sexual Orientation Not on file Plan of Treatment Not on file
--- OUTSIDE RECORDS SUMMARY | 2024-10-16 11:21 | XMS_ITS | Clinical Summary ---
Author Organization [facility] Address [address] [place] [address] Phone Care Team Providers Care Drafting Layout Man Name Role Phone Miguel Mathis MD Primary Care Provider [phone] Ollie Coronado DPM Unavailable [phone] Social History Tobacco Use Types Packs/Day Years Used Date Smoking Tobacco: Never Assessed Sex and Gender Information Value Date Recorded Sex Assigned at Not on file Legal Sex Male 1:06 PM EDT Gender Identity Not on file Sexual Orientation Not on file Plan of Treatment Health Maintenance Due Date Last Done Comments Annual Wellness Exam 1962 Hepatitis C Screening 1977 DTaP/TDaP/Td (1 - Tdap) 1978 Cologuard 02/07/2004 Colon Cancer Screening 02/07/2004 Colonoscopy 02/07/2004 FIT 02/07/2004 Sigmoidoscopy 02/07/2004 Virtual Colonography 02/07/2004 Pneumococcal Vaccine 50+ (1 of 1 - PCV) 2009 Zoster (1 of 2) 2009 COVID-19 Vaccine (2023-2 5 season) 2024 Influenza Vaccine (Season Ended) 2025 Hepatitis B Vaccine Aged Out No longe r eligible based on patient's age to complete this topic Meningococcal B Vaccine Aged Out No l onger eligible based on patient's age to complete this topic Goals Goal Patient Goal Type Associated Problems Recent Progress Patient-Stated? Author Maintain a healthy diet, exercise regularly and maintain an ideal body weight [place] [address] [employer] Care Teams Drafting Layout Man Relationship Specialty Start Date End Date Miguel Mathis MD [address] [place] [id number] PCP - General Emergency Medicine 01/28/15 Ollie Coronado DPM [address] [facility] [address] [place] [address] Senior Category Manager-Surgery, Foot & Ankle 01/28/15
--- OUTSIDE RECORDS SUMMARY | 2024-10-16 11:21 | XMS_ITS | Clinical Summary ---
Author Organization [facility] [employer] Address [address] [place] [address] Care Team Providers Care Director Of Optimization Name Role Phone Unavailable Primary Care Provider [...]
[2024-10-16 13:14] LABS: RA Latex Turbid. <10.0 IU/mL (<14.0)
[2024-10-17 11:19] LABS: Antinuclear Antibodies, IFA Negative (.)
== END 2024-10-15 23:59 | disposition home or self-care (01) ==
LOC: LAB.DROPOF 10-16 11:19
PROVIDERS: PCP Nurse Practitioner Family; Visit Provider Nurse Practitioner Family
DX: M25.50 Pain in unspecified joint (principal); I10 Essential (primary) hypertension
CPT/HCPCS: 80053; 80061; 82607; 83735; 84443; 84550; 85025; 85651; 86038; 86431

== ENCOUNTER 2024-10-23 11:01 | Outpatient (CLI) | payer MEDICARE, SELFPAY ==
--- NOTE | 2024-10-23 11:00 | CA_ITS ---
FINAL REPORT CLINICAL HISTORY: EX-SMOKER FINDINGS: The peak systolic velocity of the right common carotid artery is 62 cm/s. The peak systolic velocity of the right internal carotid artery is 111 cm/s and end diastolic velocity 36 cm/s. The ICA/CCA ratio is 2.0. A small amount of plaque is present. The right external carotid artery is patent. The right vertebral artery is patent with antegrade flow. The peak systolic velocity of the left common carotid artery is 82 cm/s. The peak systolic velocity of the left internal carotid artery is 65 cm/s and end diastolic velocity 32 cm/s. The ICA/CCA ratio is 1.1. A small amount of plaque is present. The left external carotid artery is patent.The left vertebral artery is patent with antegrade flow. IMPRESSION: Less than 50% bilateral carotid stenoses. Bilateral patent vertebral arteries with antegrade flow. Reviewed, Interpreted and Dictated by Bello Cannon MD Transcribed by Giulia Nunez Authenticated and [facility]
--- OUTSIDE RECORDS SUMMARY | 2024-10-23 11:10 | XMS_ITS | Clinical Summary ---
Author Organization Healthcare Address [address] [place] [address] Care Team Providers Care Tower Hand Name Role Phone Miguel Mathis MD Primary Care Provider Family History Medical History Relation Name Comments [...] of Treatment Not on file Care Teams Tower Hand Relationship Specialty Start Date End Date Miguel Mathis MD [address] [facility] [place] [address] PCP - General 09/18/20
--- OUTSIDE RECORDS SUMMARY | 2024-10-23 11:10 | XMS_ITS | Clinical Summary ---
Author Organization [facility] Address [address] [place] [address] Phone Care Team Providers Care Paste Mixing Supervisor Name Role Phone Miguel Mathis MD Primary Care Provider [phone] Ollie Coronado DPM Unavailable [phone] Social History Tobacco Use Types Packs/Day [...] [place] [address] [employer] Care Teams Paste Mixing Supervisor Relationship Specialty Start Date End Date Miguel Mathis MD [address] [place] [phone] PCP - General Emergency Medicine 01/28/15 Ollie Coronado DPM [address] [facility] [address] [place] [address] Ambulatory Nurse-Surgery, Foot & Ankle 01/28/15
== END 2024-10-23 23:59 | disposition home or self-care (01) ==
LOC: RT 11:02
PROVIDERS: PCP Nurse Practitioner Family; Visit Provider Nurse Practitioner Family
DX: Z00.00 Encounter for general adult medical examination without abnormal findings (principal); I65.23 Occlusion and stenosis of bilateral carotid arteries; Z87.891 Personal history of nicotine dependence
CPT/HCPCS: 93880

== ENCOUNTER 2024-11-04 08:00 | Outpatient (RCR) | payer MEDICARE, SELFPAY ==
--- NOTE | 2024-10-07 15:49 | HMH.PTOPEV ---
PT Outpatient Evaluation Rehab PT Outpatient Evaluation Start: 10/07/24 13:51 Freq: Status: Active Protocol: Document 10/07/24 13:51 VERONIKA (Rec: 10/07/24 14:41 VERONIKA [id number]) E-signed By Cece Zuniga, PT Outpatient Therapy Subjective History Subjective History This is an initial PT evaluation for 64 y/o male, Srinivasan Lawson, who presents to PT with referral for cervicalgia and decreased ROM of neck. Pt reports ~5 weeks ago, he was having severe spasms in his R shoulder. Pt reports his spasms have gotten better but he is having some stiffness. Pt reports a long history of neck pain (teenage years). Pt reports he has been having relieving pops/crack. Pt's symptoms are on both sides but mostly right sided. Denies radiculopathy symptoms. Pt denies any known SYDNEE (no MVA, no falls). PMH: back surgery in 2003, none other pmh reported. Imagin09/09/24 X-ray. No acute osseous abnormality of the cervical spine. MRI was ordered but pt sent to trial PT first. New diagnosis of No cancer in past 12 months? Chief Complaint Pain,Stiff Symptom Description Intermittent Level of pain today 2 (0-10) Pain scale - at its 0 best (0-10) Pain scale - at its 10 worst (0-10) Cervical Eval Palpation Cervical Muscles R Cervical Paraspinal,L Cervical Paraspinal,R Suboccipital,L Suboccipital,R SCM,L SCM,R Upper Trapezius,L Upper Trapezius,R Thoracic Paraspinals,L Thoracic Paraspinals Cervical/Thoracic Tenderness,Muscle Guarding Palpation Findings Posture Head/C-Spine Posture Neutral Position Sitting Position Head/C-Spine Posture Neutral Position Standing Position Flexibility Deficits Upper Trapezius (L) Mild Tightness,(R) Moderate Tightness Muscle Length Levaetor Scapulae (L) Mild Tightness,(R) Moderate Tightness Muscle Length Pectoralis Major (R) Mild Tightness,(L) Mild Tightness Muscle Length Passive Joint Mobility Cervical PIVM Dec: R C3/4 L C3/4 R C4/5 L C4/5 R C5/6 L C5/6 R C6/7 L C6/7 AROM Cervical Spine 20, painful Extension Active Range of Motion ( degrees) Cervical Spine WNL, pain free Flexion Active Range of Motion (degrees) Cervical Spine Right 30 Lateral Flexion Active Range of Motion (degrees) Cervical Spine Left 20 Lateral Flexion Active Range of Motion (degrees) Cervical Spine Right 40 Rotation Active Range of Motion ( degrees) Cervical Spine Left 45 Rotation Active Range of Motion ( degrees) MMT Bilateral Deltoid (C5) 5 Normal Biceps Brachii 5 Normal Strength Grade Triceps Brachii 5 Normal Strength Grade Special Test C-Spine Foraminal Negative Left,Negative Right Compression ( [place]urling) Test C-Spine Foraminal Negative Distraction Test C-Spine Compression Negative Left,Negative Right Test Neck Disability Index Neck Disability Index Section 1: Pain The pain is very mild at moment Intensity Section 2: Personal I can look after myself normally but it causes extra Care (washing, pain dressing, etc.) Section 3: Lifting I can lift heavy weights but it gives extra pain Section 4: Reading I can't read as much as I want because of moderate pain in my neck Section 5: Headaches I have no headaches at all Section 6: I can concentrate fully when I want to with slight Concentration difficulty Section 7: Work I can do most of my usual work, but no more Section 8: Driving I can drive my car as long as I want with slight pain in my neck Section 9: Sleeping My sleep is midly disturbed (1-2 hrs sleepless) Section 10: I am able to engage in all my recreation activities Recreation with some pain in NDI Score 13 Outpatient Therapy Assessment Impairments Problems/ Palpation Tenderness,Impaired Range of Motion,Impaired Impairmments Driving,Impaired Bending,Subjective C/O Pain Prognosis Rehab Potential Good Comment Pt presents with neck pain with mobility deficits. Pt denied any radicular symptoms, dizziness, or nausea throughout cervical evaluation. Pt would benefit from skilled OP PT to address mobility deficits and improve daily functioning. Clinical Impression Consistent with Yes Diagnosis Short Term Goals Number of Weeks 4 Decreased Palpation Yes: Decrease cervical paraspinal mm. tenderness to 1/4 Tenderness TTP. Increase Range of Yes: Improve neck AROM by 5 degrees in each direction Motion to improve function. Improve Neck Yes: Improve score to 14 points. Disability Index Score Decrease Subjective Yes: Report a 48 hour pain average of 4/10 (best, worst C/O Pain , current) Patient to be Ind w/ Yes: Verbalize compliance with HEP HEP Skilled Nursing Goals Decreased Palpation Yes: Decrease cervical paraspinal mm. tenderness to 0/4 Tenderness TTP. Increase Range of Yes: Improve neck AROM to WNL in all planes to maximize Motion daily functioning. Improve Neck Yes: Improve score to 10 points. Disability Index Score Decrease Subjective Yes: Report a 48 hour pain average of 2/10 (best, worst C/O Pain , current) Improve Self Care/ Yes: Report at least 85% improved since IE. Self Management Patient to be Ind w/ Yes: Verbalize adherence to HEP Advanced HEP Outpatient Therapy Plan of Care Treatment Plan May Include Therapeutic Exercise Yes Including Home Exercise Program Manual Therapy Yes Techniques Neuromuscular Re- Yes education Therapeutic Yes Activities to Return to Previous Functional/Work Level Gait Training Yes ADL/Self Care Yes Education Mechanical Traction Yes Dry Needling Yes Thermal Modalities Yes Electrical Yes Stimulation Ultrasound/ Yes Phonophoresis Iontophoresis Yes Orthotics/Bracing/ Yes Splinting Massage Yes Eval/Re-Eval Yes Frequency Times per week 2-3 times Duration Number of Weeks 6-8 weeks Addendums This patient is a No candidate for social or vocational rehab ? Patient/Guardian Yes verbally acknowledges understanding of treatment program and consents to further treatment? Patient/Guardian Yes verbally acknowledges understanding of diagnosis, prognosis and goals for treatment? Eval Complexity PT Charges 06933 - Moderate Complexity Shoulder/Elbow Eval Shoulder Objective Measurements Elbow Objective Measurements PHYSICIAN CERTIFICATION: I certify the specified therapy services for Srinivasan Lawson are required, authorized, and reviewed every 30 days.
== END 2024-11-04 23:59 | disposition home or self-care (01) ==
LOC: PT 08:00
PROVIDERS: Visit Provider Nurse Practitioner Family
DX: M54.2 Cervicalgia (principal); M43.6 Torticollis; M53.82 Other specified dorsopathies, cervical region
CPT/HCPCS: 97110; 97140; 97162

== ENCOUNTER 2024-11-06 09:55 | Outpatient (RCR) | payer MEDICARE, SELFPAY ==
--- NOTE | 2024-11-06 11:03 | HMH.RHREAS ---
Rehab Reassessment Rehab OP Re-assessment Start: 11/06/24 10:02 Freq: Status: Active Protocol: Document 11/06/24 10:54 VERONIKA (Rec: 11/06/24 11:02 VERONIKA [id number]) E-signed By Cece Zuniga, PT Neck Disability Index Neck Disability Index Section 1: Pain I have no pain at the moment Intensity Section 2: Personal I can look after myself normally without causing extra Care (washing, pain dressing, etc.) Section 3: Lifting I can lift heavy weights but it gives extra pain Section 4: Reading I can read as much as I want to with slight pain in my neck Section 5: Headaches I have no headaches at all Section 6: I can concentrate fully when I want to with no Concentration difficulty Section 7: Work I can do as much work as I want to Section 8: Driving I can drive my car without any neck pain Section 9: Sleeping I have no trouble sleeping Section 10: I am able to engage in all my recreation activities Recreation with no neck pain NDI Score 2 Rehab Re-assessment Subjective Subjective Pt reports he feels 85% better since IE. Pt reports good compliance with HEP. Pt reports 48-hour pain average of 0/10. Objective Objective Notes Cervical ROM: EXT: 30 FLEX: WFL LSB: 40 RSB:40 Rotation: 45 B Assessment Progress Assessment Progressing as Expected Assessment Notes This is a reassessment for Srinivasan Lawson who presents to PT for c/o neck pain and stiffness. Pt with good attendance to scheduled PT visits and reports adherence to HEP. Since IE, pt with improvements in neck ROM and pain complaints. Pt reports he is ready for d/c. D/c pt d/t met goals. Patient goals met STGs: MET LTGs: MET except B SBing and rotation ROM. Plan Plan D/c d/t met goals Time and Billing Re-Eval Time 10 Re-Eval Billing 0 Units Charge for PT No reassessment? PHYSICIAN CERTIFICATION: I certify the specified therapy services for Srinivasan Lawson are required, authorized, and reviewed every 30 days.
== END 2024-11-06 23:59 | disposition home or self-care (01) ==
LOC: PT 09:55
PROVIDERS: Visit Provider Nurse Practitioner Family
DX: M53.82 Other specified dorsopathies, cervical region (principal); M43.6 Torticollis
CPT/HCPCS: 97110

== ENCOUNTER 2025-03-14 08:29 | Outpatient (CLI) | payer MEDICARE, SELFPAY ==
--- OUTSIDE RECORDS SUMMARY | 2025-02-11 08:45 | XMS_ITS | Encounter Summary ---
Author Organization [facility] Address [address] [place] [address] Care Team Providers Care Detective Chief Name Role Phone Patricia Peralta APRN Primary Care Provider [phone] Reason for Visit * Reason Comments Pseudogout Encounter Details Date Type Department Care Team (Late st Contact Info) Description 02/11/2025 9:45 AM EDT Office Visit [facility] [address] [id number] Manuel Medina MD [address] [id number] Pseudogout (Primary Dx); High risk medication use; Arthralgia of multiple sites Social History Tobacco Use Types Packs/Day Years Used Date Smoking Tobacco: Former Cigarettes S tarted: 1994 Passive Smoke Exposure: Past Smokeless Tobacco: Never Tobacco Cessation:Counseling Given: Not Answered Comments:Patient has used tobacco. Patient has not used tobacco in the last 30 days. Patient has not used smokeless tobacco in the last 30 days. Alcohol Use Standard Drinks/Week Comments Yes 0 (1 standard drink = 0.6 oz pur e alcohol) occasional Sex and Gender Information Value Date Recorded Sex Assigned at Male 12/09/2024 1:40 PM EDT Legal Sex Male 11:17 AM EDT Gender Identity Not on file Sexual Orientation Not on file documented as of this encounter Last Filed Vital Signs Vital Sign Reading Time Taken Comments Blood Pressure 146/78 02/11/2025 9:33 AM EDT Pulse 81 02/11/2025 9:33 AM EDT Temperature 36.7 C (98 F) 02/11/2025 9:33 AM EDT Respiratory Rate - - Oxygen Saturation - - Inhaled Oxygen Concentration - - Weight 111 kg (245 lb 12.8 oz) 02/11/2025 9:33 A M EDT Height 182.9 cm (6') 02/11/2025 9:33 AM EDT Body Mass Index 33.34 02/11/2025 9:33 AM EDT documented in this encounter Patient Instructions * Patient Instructions* Manuel Medina MD - 02/11/2025 9:45 AM EDT Osteoarthritis Osteoarthritis is a type of arthritis. It refers to joint pain or joint disease. Osteoarthritis affects tissue that covers the ends of bones in joints (cartilage). Cartilage acts as a cushion betweenthe bones and helps them move smoothly. Osteoarthritis occurs when cartilage in the joints gets worn down. Osteoarthritis is sometimes called wear and tear arthritis. Osteoarthritis is the most common form of arthritis. It often occurs in older people. It is a condition that gets worse over time. The joints most often affected by this condition are in the fingers,toes, hips, knees, and spine, including the neck and lower back. What are the causes? This condition is caused by the wearing down of cartilage that covers the ends of bones. What increases the risk? The following factors may make you more likely to develop this condition: Being age 50 or older. Obesity. Overuse of joints. Past injury of a joint. Past surgery on a joint. Family history of osteoarthritis. What are the signs or symptoms? The main symptoms of this condition are pain, swelling, and stiffness in the joint. Other symptoms may include: An enlarged joint. More pain and further damage caused by small pieces of bone or cartilage that break off and float inside of the joint. Small deposits of bone (osteophytes) that grow on the edges of the joint. A grating or scraping feeling inside the joint when you move it. Popping or creaking sounds when you move. Difficulty walking or exercising. An inability to battery starter items, twist your hand, or control the movements of your hands and fingers. How is this diagnosed? This condition may be diagnosed based on: Your medical history. A physical exam. Your symptoms. X-rays of the affected joints. Blood tests to rule out other types of arthritis. How is this treated? There is no cure for this condition, but treatment can help control pain and improve joint function. Treatment may include a combination of therapies, such as: Pain relief techniques, such as: Applying heat and cold to the joint. Massage. A form of talk therapy called cognitive behavioral therapy (CBT). This therapy helps you set goals and follow up on the changes that you make. Medicines for pain and inflammation. The medicines can be taken by mouth or applied to the skin. They include: NSAIDs, such as ibuprofen. Prescription medicines. Strong anti-inflammatory medicines (corticosteroids). Certain nutritional supplements. A prescribed exercise program. You may work with a physical therapist. Assistive devices, such as a brace, wrap, splint, specialized glove, or cane. A weight control plan. Surgery, such as: An osteotomy. This is done to reposition the bones and relieve pain or to remove loose pieces of bone and cartilage. Joint replacement surgery. You may need this surgery if you have advanced osteoarthritis. Follow these instructions at home: Activity Rest your affected joints as told by your health care provider. Exercise as told by your provider. The provider may recommend specific types of exercise, such as: Strengthening exercises. These are done to strengthen the muscles that support joints affected by arthritis. Aerobic activities. These are exercises, such as brisk walking or water aerobics, that increase your heart rate. Mfwix-wp-wlufmu activities. These help your joints move more easily. Balance and agility exercises. Managing pain, stiffness, and swelling If told, apply heat to the affected area as often as told by your provider. Use the heat source that your provider recommends, such as a moist heat pack or a heating pad. If you have a removable assistive device, remove it as told by your provider. Place a towel between your skin and the heat source. If your provider tells you to keep the assistive device on while you apply heat, place a towel between the assistive device and the heat source. Leave the heat on for 20-30 minutes. If told, put ice on the affected area. If you have a removable assistive device, remove it as told by your provider. Put ice in a plastic bag. Place a towel between your skin and the bag. If your provider tells you to keep the assistive device on during icing, place a towel between the assistive device and the bag. Leave the ice on for 20 minutes, 2-3 times a day. If your skin turns bright red, remove the ice or heat right away to prevent skin damage. The risk of damage is higher if you cannot feel pain, heat, or cold. Move your fingers or toes often to reduce stiffness and swelling. Raise (elevate) the affected area above the level of your heart while you are sitting or lying down. General instructions Take lguo-kga-jmqwydj and prescription medicines only as told by your provider. Maintain a healthy weight. Follow instructions from your provider for weight control. Do not use any products that contain nicotine or tobacco. These products include cigarettes, chewing tobacco, and vaping devices, such as e-cigarettes. If you need help quitting, ask your provider. Use assistive devices as told by your provider. Where to find more information National [place] of Arthritis and Musculoskeletal and Skin Diseases: niams.nih.gov National [place] on Aging: shelley.nih.gov [place] [employer]: rheumatology.org Contact a health care provider if: You have redness, swelling, or a feeling of warmth in a joint that gets worse. You have a fever along with joint or muscle aches. You develop a rash. You have trouble doing your normal activities. You have pain that gets worse and is not relieved by pain medicine. This information is not intended to replace advice given to you by your health care provider. Make sure you discuss any questions you have with your health care provider. Document Revised: 12/22/2022 Document Reviewed: 12/22/2022 [employer] Patient Education ?? 2023 [employer]. Methotrexate Tablets What is this medication? METHOTREXATE (METH oh TREX ate) treats autoimmune conditions, such as arthritis and psoriasis. It works by decreasing inflammation, which can reduce pain and prevent long-term injury to the joints and skin. It may also be used to treat some types of cancer. It works by slowing down the growth of cancer cells. This medicine may be used for other purposes; ask your health care provider or pharmacist if you have questions. COMMON BRAND NAME(S): Rheumatrex, Trexall What should I tell my care team before I take this medication? They need to know if you have any of these conditions: Dehydration Diabetes Fluid in the stomach area or lungs Frequently drink alcohol Having surgery, including dental surgery High cholesterol Immune system problems Inflammatory bowel disease, such as ulcerative colitis Kidney disease Liver disease Low blood cell levels (white cells, red cells, and platelets) Lung disease Recent or ongoing radiation Recent or upcoming vaccine Stomach ulcers, other stomach or intestine problems An unusual or allergic reaction to methotrexate, other medications, foods, dyes, or preservatives or trying to get How should I use this medication? Take this medication by mouth with water. Take it as directed on the prescription label. Do not take extra. Keep taking this medication until your care team tells you to stop. Know why you are taking this medication and how you should take it. To treat conditions such as arthritis and psoriasis, this medication is taken ONCE A WEEK as a single dose or divided into 3 smaller doses taken 12 hours apart (do not take more than 3 doses 12 hours apart each week). This medication is NEVER taken daily to treat conditions other than cancer. Taking this medication more often than directed can cause serious side effects, even . Talk to your care team about why you are taking this medication, how often you will take it, and what your dose is. Ask your care team to put thereason you take this medication on the prescription. If you take this medication ONCE A WEEK, choose a day of the week before you start. Ask your pharmacist to include the day of the week on the label. Avoid Monday , which could be misread as Morning . Handling this medication may be harmful. Talk to your care team about how to handle this medication. Special instructions may apply. Talk to your care team about the use of this medication in children. While it may be prescribed forselected conditions, precautions do apply. Overdosage: If you think you have taken too much of this medicine contact a poison control center or emergency room at once. NOTE: This medicine is only for you. Do not share this medicine with others. What if I miss a dose? If you miss a dose, talk with your care team. Do not take double or extra doses. What may interact with this medication? Do not take this medication with any of the following: Acitretin Live virus vaccines Probenecid This medication may also interact with the following: Alcohol Aspirin and aspirin-like medications Certain antibiotics, such as penicillin, neomycin, sulfamethoxazole; trimethoprim Certain medications for stomach problems, such as lansoprazole, omeprazole, pantoprazole Clozapine Cyclosporine Dapsone Folic acid Foscarnet NSAIDs, medications for pain and inflammation, such as ibuprofen or naproxen Phenytoin Pyrimethamine Steroid medications, such as prednisone or cortisone Tacrolimus Theophylline This list may not describe all possible interactions. Give your health care provider a list of all the medicines, herbs, non-prescription drugs, or dietary supplements you use. Also tell them if you smoke, drink alcohol, or use illegal drugs. Some items may interact with your medicine. What should I watch for while using this medication? Visit your care team for regular checks on your progress. It may be some time before you see the benefit from this medication. You may need blood work done while you are taking this medication. If your care team has also prescribed folic acid, they may instruct you to skip your folic acid dose on the day you take methotrexate. This medication can make you more sensitive to the sun. Keep out of the sun. If you cannot avoid being in the sun, wear protective clothing and sunscreen. Do not use sun lamps, tanning beds, or tanning booths. Check with your care team if you have severe diarrhea, nausea, and vomiting, or if you sweat a lot.The loss of too much body fluid may make it dangerous for you to take this medication. This medication may increase your risk of getting an infection. Call your care team for advice if you get a fever, chills, sore throat, or other symptoms of a cold or flu. Do not treat yourself. Try to avoid being around people who are sick. Talk to your care team about your risk of cancer. You may be more at risk for certain types of cancers if you take this medication. Talk to your care team if you or your partner may be . Serious defects can occur if you take this medication during and for 6 months after the last dose. You will need a negative test before starting this medication. Contraception is recommended while taking this medication and for 6 months after the last dose. Your care team can help you find the option that works for you. If your partner can get , use a condom during sex while taking this medication and for 3 months after the last dose. Do not breastfeed while taking this medication and for 1 week after the last dose. This medication may cause infertility. Talk to your care team if you are concerned about your fertility. What side effects may I notice from receiving this medication? Side effects that you should report to your care team as soon as possible: Allergic reactions--skin rash, itching, hives, swelling of the face, lips, tongue, or throat Dry cough, shortness of breath or trouble breathing Infection--fever, chills, cough, sore throat, wounds that don't heal, pain or trouble when passing urine, general feeling of discomfort or being unwell Kidney injury--decrease in the amount of urine, swelling of the ankles, hands, or feet Liver injury--right upper belly pain, loss of appetite, nausea, light-colored stool, dark yellow orbrown urine, yellowing skin or eyes, unusual weakness or fatigue Low red blood cell level--unusual weakness or fatigue, dizziness, headache, trouble breathing Pain, tingling, or numbness in the hands or feet, muscle weakness, change in vision, confusion or trouble speaking, loss of balance or coordination, trouble walking, seizures Redness, blistering, peeling, or loosening of the skin, including inside the mouth Stomach bleeding--bloody or black, tar-like stools, vomiting blood or brown material that looks like coffee grounds Stomach pain that is severe, does not away, or gets worse Unusual bruising or bleeding Side effects that usually do not require medical attention (report these to your care team if they continue or are bothersome): Diarrhea Dizziness Hair loss Nausea Pain, redness, or swelling with sores inside the mouth or throat Skin reactions on sun-exposed areas Vomiting This list may not describe all possible side effects. Call your doctor for medical advice about side effects. You may report side effects to FDA at 7-178-TQF-3121. Where should I keep my medication? Keep out of the reach of children and pets. Store at room temperature between 20 and 25 degrees C (68 and 77 degrees F). Protect from light. Keep the container tightly closed. Get rid of any unused medication after the expiration date. To get rid of medications that are no longer needed or have : Take the medication to a medication take-back program. Check with your pharmacy or law enforcement to find a location. If you cannot return the medication, ask your pharmacist or care team how to get rid of this medication safely. NOTE: This sheet is a summary. It may not cover all possible information. If you have questions about this medicine, talk to your doctor, pharmacist, or health care provider. ?? 2023 Elsevier/Gold Standard (2023-07-02 00:00:00) * Attachments The following attachments cannot be sent through Care Everywhere. * Calcium Pyrophosphate Deposition Disease ([place]) documented in this encounter Progress Notes * Manuel Medina MD - 02/11/2025 9:45 AM EDT Images from the original note were not included. Office Follow Up Date: 02/11/2025 Patient Name: Srinivasan Lawson Date of : 1960 Referring Physician: No ref. provider found Chief Complaint: Chief Complaint Patient presents with Pseudogout History of Present Illness: Srinivasan Lawson is a 65 y.o. male who is here today for follow up on osteoarthritis, pseudogout and +RF. History: The patient reports that starting in 2006, he had problems with sudden onset severe swelling and pain in his left ankle. There was no injury to the ankle. It just started randomly and suddenly. He reports having testing for lupus and Lyme disease at the time which were negative. The doctor at the time suspected pseudogout. The patient would get flare-ups in his knees and wrists on occasion. He noticed that when taking antibiotic that the symptoms would completely go away, but antibiotics stopped helping after a few years. In 2009 he started seeing a new family doctor and continued have problems with flare-ups in his wrists, knees and left ankle. He was given steroids which did not help. There was reportedly suspicion for Lyme disease, but testing for Lyme disease again was negative. He was sent to a cane stripper and reports that he was never diagnosed with anything specific. He next went to [facility] and again was not given a specific diagnosis. He was prescribed allopurinol by the family doctor at the time and colchicine for flare-ups as needed. The allopurinol did not seem to help him, so he stopped it. He does not think his uric acid was ever high. He does note that the colchicine seems to help the swelling and pain slightly when he gets the flare-ups in his peripheral joints. Since retiring in 2021 he has felt some better and the flare-ups wrists, knees, left ankle are not as frequent. He has noticed more joint stiffness in his back and hips now. He still has left ankle and right wrist swelling and aching often. X-rays of the knees have shown degenerative osteoarthritis changes as well as chondrocalcinosis Interim 12/11/2024: He stopped hydroxychloroquine as it did not seem to help him. His PCP next prescribed him oral diclofenac which did help him significantly in regards to joint pain for 3 months, however he developed diarrhea on it so he stopped it. Now he is taking ibuprofen [id number]. Despite this he continues to have intermittent flareups right wrist, knee. Increased neck and back pain.No swollen joints today. Repeat labs show negative rheumatoid factor, negative BARB, normal sed rateJune 2024 Interim 02/11/2025: He returns early to clinic due to flareups particularly right wrist, bilateral knees and left ankle. Present medications do not seem to be preventing the flareups. He felt diclofenac worked better than nabumetone did. Colchicine helped slightly. No swollen finger joints. No flares in the fingers History of Present Illness Subjective Review of Systems: Review of Systems Constitutional: Negative for chills, fatigue, fever and unexpected weight loss. HENT: Negative for mouth sores, sinus pressure and sore throat. Eyes: Positive for itching. Negative for pain and redness. Respiratory: Negative for cough and shortness of breath. Cardiovascular: Negative for chest pain. Gastrointestinal: Positive for GERD and indigestion. Negative for abdominal pain, blood in stool, diarrhea, nausea and vomiting. Endocrine: Negative for polydipsia and polyuria. Genitourinary: Negative for dysuria, genital sores and hematuria. Musculoskeletal: Positive for arthralgias, joint swelling and neck pain. Negative for back pain, myalgias and neck stiffness. Skin: Negative for rash and bruise. Allergic/Immunologic: Positive for environmental allergies. Neurological: Negative for seizures, weakness, numbness and memory problem. Hematological: Negative for adenopathy. Does not bruise/bleed easily. Psychiatric/Behavioral: Negative for depressed mood. The patient is not nervous/anxious. Past Medical History: Past Medical History: Diagnosis Date Broken ribs GERD (gastroesophageal reflux disease) Hypertension Osteoarthritis Pseudogout Past Surgical History: Past Surgical History: Procedure Laterality Date CHOLECYSTECTOMY Family History: Family History Problem Relation Age of Onset Arthritis Mother Prostate cancer Father Social History: Social History Socioeconomic History Marital status: Single Tobacco Use Smoking status: Former Types: Cigarettes Start date: 1994 Passive exposure: Past Smokeless tobacco: Never Tobacco comments: Patient has used tobacco. Patient has not used tobacco in the last 30 days. Patient has not used smokeless tobacco in the last 30 days. Vaping Use Vaping status: Never Used Substance and Sexual Activity Alcohol use: Yes Comment: occasional Drug use: Never Sexual activity: Defer Medications: Current Outpatient Medications: colchicine 0.6 MG tablet, 1 tab bid on day 1 of flare, then 1 tab daily thereafter prn flare, Disp:30 tablet, Rfl: 5 diclofenac (VOLTAREN) 75 MG EC tablet, Take 1 tablet by mouth 2 (Two) Times a Day As Needed (pain)., Disp: 60 tablet, Rfl: 6 folic acid (FOLVITE) 1 MG tablet, Take 1 tablet by mouth Daily., Disp: 90 tablet, Rfl: 3 methotrexate 2.5 MG tablet, Take 6 tablets by mouth 1 (One) Time Per Week. (take all tabs on the same day once a week), Disp: 30 tablet, Rfl: 2 Allergies: No Known Allergies Objective Vital Signs: Vitals: 02/11/25 0933 BP: 146/78 BP Location: Left arm Patient Position: Sitting Cuff Size: Adult Pulse: 81 Temp: 98 ??F (36.7 ??C) Weight: 111 kg (245 lb 12.8 oz) Height: 182.9 cm (72 ) PainSc: 4 Body mass index is 33.34 kg/m??. Physical Exam: Physical Exam MUSCULOSKELETAL: Right wrist slightly swollen and tender Positive crepitus knees. No warmth or effusion Left ankle swollen and tender Complete joint exam was performed including the MCPs, PIPs, DIPs of the hands, wrists, elbows, shoulders, hips, knees and ankles. No soft tissue swelling or tenderness is present except as above. General: The patient is well-developed and well nourished. Cooperative, alert and oriented. Affect is normal. Hydration appears normal. HEENT: Normocephalic and atraumatic. Lids and conjunctiva are normal. Pupils are equal and sclera are clear. Oropharynx is clear NECK neck is supple without adenopathy, masses or thyromegaly. CARDIOVASCULAR: Regular rate and rhythm. No murmurs, rubs or gallops LUNGS: Effort is normal. Lungs are clear bilateral ABDOMEN: Not examined EXTREMITIES: Peripheral pulses are intact. No clubbing. SKIN: No rashes. No subcutaneous nodules. No digital ulcers. No sclerodactyly. NEUROLOGIC: Gait is normal. Strength testing is normal. 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 *Longstanding history frequent episodic sudden onset inflammatory arthritis involving left ankle, knees, wrist Diagnosed as pseudogout years ago by outside cane stripper Uric acid normal. No prior improvement with allopurinol X-ray feet and hands 06/15/2023: Osteoarthritis changes X-ray knees 06/27/2023: Moderate tricompartmental osteoarthritis bilateral knees. Chondrocalcinosis lateral compartments Labs 06/15/2023: + RF 33/neg ACPA, uric acid 3.6, normal sed rate/CRP/CBC/CMP /ferritin/iron Labs 10/15/2024: Negative rheumatoid factor, negative BARB, normal sed rate, normal CBC Current Rx: diclofenac PO, as needed colchicine, MTX 02/11/25 Prior nabumetone, plaquenil (no help) Previous allopurinol(no help), meloxicam (no help), celecoxib Patient describes episodic inflammatory arthritis involving his left ankle, knees, wrists. Also chronic stiffness and pain neck and back. He reports his uric acid has always been normal. Prior trial of allopurinol was of no help. Colchicine helps somewhat when he gets the flare-ups. I suspect intermittent flareups in his joints are due to pseudogout given chondrocalcinosis findings on x-rays. He also has generalized osteoarthritis contributing to pain and stiffness. I think unlikely this is rheumatoid arthritis as he has no persistent synovitis particular in the hands, and repeat RF is negative Knee x-ray does show osteoarthritis and chondrocalcinosis that can be seen with pseudogout Less likely this is gout. Uric acid is normal He returns early to clinic today as he feels his present medications are not effective at preventing flareups in his joints. Presently flaring right wrist, bilateral knees and left ankle. Recommendations -Stop nabumetone and switch back to oral diclofenac which seems to work better for him -Colchicine as needed for flares which has previously been effective for him Consider prophylactic colchicine if needed in the future Handout provided today on pseudogout and osteoarthritis Discussed risks of colchicine such as diarrhea, bone marrow suppression Risks of NSAIDs discussed including GI upset, GI bleeding, renal and hepatic risks and the risks ofcardiovascular disease and stroke. Warned patient not to take with other NSAIDs including OTC NSAIDs. -Recommend trial of methotrexate 6 tablets once weekly along with daily folic acid. Methotrexate handout provided -Labs ordered as below for monitoring to be done in 1 month and every 3 months thereafter. Return to clinic 4 months - High risk medication - Immunosuppression due to medication Methotrexate Risk include but are not limited to severe liver damage so can be fatal, the possible need for liver biopsy, bone marrow suppression that can lead to dangerously low blood counts, GI side effects including mouth sores and diarrhea, fatigue, and the rare risk of severe pulmonary complications. There should be no alcohol consumed with methotrexate. Methotrexate can cause severe abnormalities whether the mother or father is taking the medication, and thus must be avoided if is a possibility. Strict control recommended. All medication is to be taken 1 day a week only. The need for Q 8-12-week labs and the need for folic acid supplement were discussed. - NSAID long-term use Risks of NSAIDs discussed including GI upset, GI bleeding, renal or hepatic risks and the risk of cardiovascular disease and stroke. Warned patient not to take other NSAIDs including [id number] Assessment & Plan 1. Pseudogout 2. High risk medication use 3. Arthralgia of multiple sites Orders Placed This Encounter Procedures Comprehensive Metabolic Panel CBC Auto Differential C-reactive Protein Sedimentation Rate Comprehensive Metabolic Panel CBC Auto Differential C-reactive Protein Sedimentation Rate Lyme Disease Total Antibody With Reflex to Immunoassay Ehrlichia Profile DNA PCR Rickettsia Species DNA, Real-Time PCR Uric Acid Rheumatoid Factor Cyclic Citrul Peptide Antibody, IgG / IgA New Medications Ordered This Visit Medications diclofenac (VOLTAREN) 75 MG EC tablet Sig: Take 1 tablet by mouth 2 (Two) Times a Day As Needed (pain). Dispense: 60 tablet Refill: 6 methotrexate 2.5 MG tablet Sig: Take 6 tablets by mouth 1 (One) Time Per Week. (take all tabs on the same day once a week) Dispense: 30 tablet Refill: 2 folic acid (FOLVITE) 1 MG tablet Sig: Take 1 tablet by mouth Daily. Dispense: 90 tablet Refill: 3 colchicine 0.6 MG tablet Si tab bid on day 1 of flare, then 1 tab daily thereafter prn flare Dispense: 30 tablet Refill: 5 Follow Up: Return in about 4 months (around 06/16/2025). Discussed plan of care in detail with the patient today. Patient verbalized understanding and agrees. I confirm accuracy of unchanged data/findings which have been carried forward from previous visit. I have updated appropriately those that have changed. Manuel Medina MD [facility] [place] documented in this encounter Plan of Treatment Upcoming Encounters Date Type Department Care Team (Late st Contact Info) Description 06/16/2025 10:45 AM EST Office Visit [facility] [address] [place] [phone] Manuel Medina MD [address] [address] Scheduled Orders Name Type Priority Associated Diagnoses Orde r Schedule Comprehensive Metabolic Panel Lab Routine Pseudogout High risk medication use Arthralgia of multiple sites Every 12 Weeks for 3 Occurrences starting 02/11/2025 until 02/11/2026 CBC Auto Differential Lab Routine Pseudogout High risk medication use Arthralgia of multiple sites Every 12 Weeks for 3 Occurrences starting 02/11/2025 until 02/11/2026 C-reactive Protein Lab Routine Pseudogout High risk medication use Arthralgia of multiple sites Every 12 Weeks for 3 Occurrences starting 02/11/2025 until 02/11/2026 Sedimentation Rate Lab Routine Pseudogout High risk medication use Arthralgia of multiple sites Every 12 Weeks for 3 Occurrences starting 02/11/2025 until 02/11/2026 Comprehensive Metabolic Panel Lab Routine Pseudogout High risk medication use Arthralgia of multiple sites Expected: 02/16/2025 (Approximate), Expires: 05/14/2026 CBC Auto Differential Lab Routine Pseudogout High risk medication use Arthralgia of multiple sites Expected: 02/16/2025 (Approximate), Expires: 05/14/2026 C-reactive Protein Lab Routine Pseudogout High risk medication use Arthralgia of multiple sites Expected: 02/16/2025 (Approximate), Expires: 05/14/2026 Sedimentation Rate Lab Routine Pseudogout High risk medication use Arthralgia of multiple sites Expected: 02/16/2025 (Approximate), Expires: 05/14/2026 Lyme Disease Total Antibody With Reflex to Immunoassay Lab Routine Pseudogout High risk medication use Arthralgia of multiple sites Expected: 02/16/2025 (Approximate), Expires: 05/14/2026 Ehrlichia Profile DNA PCR Lab Routine Pseudogout High risk medication use Arthralgia of multiple sites Expected: 02/16/2025 (Approximate), Expires: 05/14/2026 Rickettsia Species DNA, Real-Time PCR Lab Routine Pseudogout High risk medication use Arthralgia of multiple sites Expected: 02/16/2025 (Approximate), Expires: 05/14/2026 Uric Acid Lab Routine Pseudogout High risk medication use Arthralgia of multiple sites Expected: 02/16/2025 (Approximate), Expires: 05/14/2026 Rheumatoid Factor Lab Routine Pseudogout High risk medication use Arthralgia of multiple sites Expected: 02/16/2025 (Approximate), Expires: 05/14/2026 Cyclic Citrul Peptide Antibody, IgG / IgA Lab Routine Pseudogout High risk medication use Arthralgia of multiple sites Expected: 02/16/2025 (Approximate), Expires: 05/14/2026 documented as of this encounter Visit Diagnoses Diagnosis Pseudogout- Primary Other disorder of calcium metabolism High risk medication use Arthralgia of multiple sites documented in this encounter Care Teams Detective Chief Relationship Specialty Start Date End Date Patricia Peralta APRN [address] [place] [address] [place] [address] PCP - General Internal Medicine 02/11/25 documented as of this encounter
--- OUTSIDE RECORDS SUMMARY | 2025-03-14 08:42 | XMS_ITS | Clinical Summary ---
Author Organization [facility] Address [address] [place] [address] Phone Care Team Providers Care Health Diagnostics Teacher Name Role Phone Miguel Mathis MD Primary Care Provider [phone] Ollie Coronado DPM Unavailable [phone] Social History Tobacco Use Types Packs/Day [...] Zoster (1 of 2) 2009 COVID-19 Vaccine (2024-2 6 season) 2025 Influenza Vaccine (#1) 2025 Hepatitis B Vaccine Aged Out No [...] [place] [address] [employer] Care Teams Health Diagnostics Teacher Relationship Specialty Start Date End Date Miguel Mathis MD [address] [place] [phone] PCP - General Emergency Medicine 01/28/15 Ollie Coronado DPM [address] [facility] [address] [place] [address] [facility] 01/28/15
--- OUTSIDE RECORDS SUMMARY | 2025-03-14 08:42 | XMS_ITS | Clinical Summary ---
Author Organization [facility] Address [address] [place] [address] Care Team Providers Care Shoe Dresser Name Role Phone Patricia Peralta APRN Primary Care Provider Allergies No known active allergies Medications diclofenac (VOLTAREN) 75 MG EC tablet Take 1 tablet by mouth 2 (Two) Times a Day As Needed (pain). 60 tablet 6 5 Active methotrexate 2.5 MG tablet Take 6 tablets by mouth 1 (One) Time Per Week. (take all tabs on the same day once a week) 30 tablet 2 5 Active folic acid (FOLVITE) 1 MG tablet Take 1 tablet by mouth Daily. 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 Longstanding history frequent episodic sudden onset inflammatory arthritis involving left ankle, knees, wrists Diagnosed as pseudogout years ago by outside political consultant Uric acid reportedly normal. No prior improvement with allopurinol X-ray feet and hands 06/15/2023: Osteoarthritis changes X-ray knees 06/27/2023: Moderate tricompartmental osteoarthritis bilateral knees. Chondrocalcinosis lateral compartments Labs 06/15/2023: + RF 33/neg ACPA, uric acid 3.6, normal sed rate/CRP/CBC/CMP /ferritin/iron Current: Colchicine(helpful), ibuprofen Previous allopurinol, meloxicam no help Ddx includes pseudogout, rheumatoid arthritis, osteoarthritis Knee x-ray does show osteoarthritis and chondrocalcinosis that can be seen with pseudogout Rheumatoid factor is mildly positive. Patient describes episodic inflammatory arthritis involving his left ankle, knees, wrists. Also chronic stiffness and pain neck and back. He reports his uric acid has always been normal. Prior trial of allopurinol was of no help. Colchicine helps somewhat when he gets the flare-ups. Not currently having a flare. He does have flare-ups wrists, knee or ankle almost monthly. Suspect RA versus pseudogout causing episodic sudden onset flare-ups left ankle, knees, wrists with osteoarthritis involving his spine. Less likely this is gout. Uric acid is normal There is no clinical evidence of psoriatic arthritis, systemic lupus or connective tissue disease, vasculitis, Sjogren's or myopathy Recommend labs ordered today as below Recommend a trial of Plaquenil 200 mg once daily Recommend p.r.n. ibuprofen for neck and back pain likely from degenerative arthritis Handout provided today on pseudogout and osteoarthritis Discussed risks of colchicine such as diarrhea, bone marrow suppression Risks of NSAIDs discussed including GI upset, GI bleeding, renal and hepatic risks and the risks of cardiovascular disease and stroke. Warned patient not to take with other NSAIDs including OTC NSAIDs. Return to clinic 6 months Generalized osteoarthrosis, involving multiple s ites 10/24/2023 Assessment & Plan (10/24/2023 10:09 AM EDT): likely has degenerative arthritis involving his spine at his age X-ray feet and hands 06/15/2023: Osteoarthritis changes X-ray knees 06/27/2023: Moderate tricompartmental osteoarthritis bilateral knees. Chondrocalcinosis lateral compartment Recommend p.r.n. NSAID NSAID long-term use 10/24/2023 Assessment & Plan (10/24/2023 10:09 AM EDT): Risks of NSAIDs discussed including GI upset, GI bleeding, renal or hepatic risks and the risk of cardiovascular disease and stroke. Warned patient not to take other NSAIDs including [id number] NSAIDs Rheumatoid factor positive 10/24/2023 Arthralgia of multiple sites 10/18/2023 Encounters Date Type Department Care Team Description 02/11/2025 9:45 AM EDT Office Visit [facility] [address] [place] [phone] Manuel Medina MD Pseudogout (Primary Dx); High risk medication use; Arthralgia of multiple sites 02/11/2025 Travel 02/07/2025 Telephone [facility] [address] [place] [phone] Manuel Medina MD 12/27/2024 Telephone [facility] [address] [place] [phone] Manuel Medina MD from Last 3 Months Family History Medical History Relation Name Comments Prostate cancer Father Arthritis Mother Relation Name Status Comments Father Mother Social History Tobacco Use Types Packs/Day Years [...] Mass Index 33.34 02/11/2025 9:33 AM EDT Plan of Treatment Upcoming Encounters Date Type Department Care Team (Late st Contact Info) Description 06/16/2025 10:45 AM EST Office Visit [facility] [address] [place] [address] Manuel Medina MD [address] [place] [address] Health Maintenance Due Date Last Done Comments TDAP/TD VACCINES (1 - Tdap) 1978 COLOGUARD 02/07/2004 COLON CANCER SCREENING 5 YEA R SIGMOIDOSCOPY 02/07/2004 COLONOSCOPY 02/07/2004 COLORECTAL CANCER SCREENING 02/07/2004 CT COLONOGRAPHY 02/07/2004 FECAL OCCULT BLOOD TEST 02/07/2004 FIT Testing (1 year) 02/07/2004 Pneumococcal Vaccine 50+ (1 of 1 - PCV) 2009 ZOSTER VACCINE (1 of 2) 2009 ANNUAL WELLNESS VISIT 10/18/2023 HEPATITIS C SCREENING 10/18/2023 INFLUENZA VACCINE 12/06/2024 02/21/2024 COVID-19 Vaccine ( season) 2025 02/24/2021, 06/12/2020, 05/12/2020 AAA SCREEN ONCE Completed 09/08/2017 Insurance [employer] O Care Teams Shoe Dresser Relationship Specialty Start Date End Date Patricia Peralta APRN [address] [place] [address] [place] [address] PCP - General Internal Medicine 02/11/25
--- OUTSIDE RECORDS SUMMARY | 2025-03-14 08:42 | XMS_ITS | Encounter Summary ---
[facility] Organization [facility] Address [address] [place] [address] Care Team Providers Care Legal Office Administrator Name Role Phone Patricia Peralta APRN Primary Care Provider [phone] Encounter Details Date Type Department Care Team (Latest Contact Info) Description 02/11/2025 Travel Social History Tobacco Use Types Packs/Day Years Used Date Smoking Tobacco: Former Cigarettes S tarted: 1994 Passive Smoke Exposure: Past Smokeless Tobacco: Never Comments:Patient has used to bacco. Patient has not used tobacco in the [...] on file documented as of this encounter Plan of Treatment Upcoming Encounters Date Type Department Care Team (Late st Contact Info) Description 06/16/2025 10:45 AM EST Office Visit [facility] [address] [phone] Manuel Medina MD [address] [facility] [address] [place], [place] [phone] documented as of this encounter Visit Diagnoses Not on filedocumented in this encounter Care Teams Legal Office Administrator Relationship Specialty Start Date End Date Patricia Peralta APRN [address] [place] [address] [place] [address] PCP - General Internal Medicine 02/11/25 documented as of this encounter
--- OUTSIDE RECORDS SUMMARY | 2025-03-14 08:42 | XMS_ITS | Clinical Summary ---
Author Organization [facility] Address [address] [phone] Care Team Providers Care House Worker Name Role Phone Miguel Mathis MD Primary [...] of Treatment Not on file Care Teams House Worker Relationship Specialty Start Date End Date Miguel Mathis MD [address] [facility] [place] [address] PCP - General 09/18/20
--- OUTSIDE RECORDS SUMMARY | 2025-03-14 08:42 | XMS_ITS | Encounter Summary ---
[facility] Organization [facility] Address [address] [place] [address] Care Team Providers Care Distance Learning Technician Name Role Phone Jersey Mercado MD Primary Care Provider [phone] Encounter Details Date Type Department Care Team (Late st Contact Info) Description 02/07/2025 Telephone [facility] [address] [phone] Manuel Medina MD [address] [phone] Social History Tobacco Use Types Packs/Day Years [...] on file documented as of this encounter Miscellaneous Notes * Telephone Encounter - Renetta Pradhan MA - 02/07/2025 2:02 PM EDT Pt notified. He verbalized understanding. I've placed on hold and asked someone from scheduling to speak with him. -GISSELL Kim * Telephone Encounter - Rosalinda Sadler MA - 02/07/2025 2:00 PM EDT Please schedule Pt with Dr Martinez.Read Dr. Medina's note below. * Telephone Encounter - Dave Alonso RegSched Rep - 02/07/2025 10:21 AM EDT PT CALLED IN TO SAY THAT THE MEDICATION DR MEDINA STARTED HIM ON HASN'T BEEN HELPING, INCLUDING THE COLCHICINE DURING HIS FLARE UPS. WAS WONDERING WHAT OTHER OPTIONS HE HAD. PLEASE CALL AND ADVISE documented in this encounter Plan of Treatment Upcoming Encounters Date Type Department Care Team (Late st Contact Info) Description 06/16/2025 10:45 AM EST Office Visit [facility] [address] [phone] Manuel Medina MD [address] [address] documented as of this encounter Visit Diagnoses Not on filedocumented in this encounter Care Teams Distance Learning Technician Relationship Specialty Start Date End Date Jersey Mercado MD [address] [facility] [address] [place] [address] PCP - General Family Medicine 10/24/23 02/10/25 documented as of this encounter
[2025-03-14 08:59] LABS: Hematocrit 41.5 % (42.0-52.0); Hemoglobin 13.9 g/dL (14.1-18.0); Immature Granulocytes % 0.2 %; Mean Corpuscular HGB Conc 33.5 g/dL (31.8-35.4); Mean Corpuscular Hemoglobin 29.8 pg (27.0-31.2); Mean Corpuscular Volume 88.9 fl (80-94); Nucleated Red Blood Cells % 0 %; Platelet Count 301 K/mm3 (142-424); Red Blood Count 4.67 M/mm3 (4.60-6.20); Red Cell Distribution Width-SD 43.9 fL; White Blood Count 5.2 K/mm3 (4.8-10.8)
[2025-03-14 09:34] LABS: Uric Acid 4.0 mg/dl (3.5-8.5)
[2025-03-14 09:36] LABS: Alanine Aminotransferase 25 U/L (12-78); Albumin Level 4.1 g/dl (3.5-5.0); Albumin/Globulin Ratio 1.4 (1.1-1.8); Alkaline Phosphatase 78 U/L (38-126); Anion Gap 9.7 mEq/L (5-15); Aspartate Amino Transferase 26 U/L (17-59); Bilirubin,Total 1.1 mg/dl (0.2-1.3); Blood Urea Nitrogen 20 mg/dl (9-20); Calcium 8.9 mg/dl (8.4-10.2); Carbon Dioxide 26 mmol/L (22.0-30.0); Chloride 107 mmol/L (98-107); Cholesterol 167 mg/dl (140-200); Creatinine,Serum 0.70 mg/dl (0.66-1.25); Estimated Glomerular Filt Rate 113 ml/min (>60); GFR (African American) 137 ML/MIN (>60); Globulin 2.9 g/dL (1.3-3.2); Glucose 115 mg/dl (74-100); HDL Cholesterol 39 mg/dl (40-60); Potassium 4.7 mmoL/L (3.5-5.1); Sodium 138 mmol/L (136-145); Total Protein,Serum 7.0 g/dl (6.3-8.2); Triglycerides 91 mg/dl (30-150)
[2025-03-14 09:49] LABS: C-Reactive Protein 14.5 mg/L (0-4)
[2025-03-14 10:04] LABS: Thyroid Stimulating Hormone 1.96 uIU/mL (0.465-4.68)
[2025-03-20 10:36] LABS: A. phagocytophilum,PCR Negative (Negative); Ehrlichia sp., PCR Negative (Negative)
[2025-03-20 13:42] LABS: Anti-CCP Abs,IgG and IgA (RDL) < 20 Units (<20)
== END 2025-03-14 23:59 | disposition home or self-care (01) ==
LOC: LAB 08:29
PROVIDERS: Internal Medicine; PCP Nurse Practitioner Family; Visit Provider Nurse Practitioner Family
DX: I11.9 Hypertensive heart disease without heart failure (principal); Z13.220 Encounter for screening for lipoid disorders; Z12.5 Encounter for screening for malignant neoplasm of prostate; M19.90 Unspecified osteoarthritis, unspecified site; M11.20 Other chondrocalcinosis, unspecified site; Z79.899 Other long term (current) drug therapy; M25.50 Pain in unspecified joint
CPT/HCPCS: 36415; 80053; 80061; 84443; 84550; 85025; 85651; 86140; 86200; 86617; 87468; 87484; G0103